=== PATIENT | male | born 1980 | race Caucasian/White ===

== ENCOUNTER 2023-06-04 04:38 | Emergency (ER) | payer BC, SELFPAY ==
--- NOTE | 2023-06-04 06:38 | EDS_ITS ---
HPI History of Present Illness Informant: patient and family Narrative Narrative: Healthy 43-year-old male presents almost 24 hours after waking up with numbness in the right side of his face. Initially started lower face, progressed up his face to his forehead and including weakness. Trouble drinking when his symptoms progressed, trouble closing his eyes, and increased tearing from his right eye. No headache or ear pain. No recent infections or URI symptoms. He denies any arm or leg neurologic involvement or trouble walking or trouble speaking. No recent head injury. Never had this before. PFSH PFSH Medical History no medical history no medical history Home Medications prednisone 20 mg tablet 60 mg (3 x 20 mg) PO DAILY 6 days #18 TABLETS 06/04/23 [Rx Last Taken Unknown] valacyclovir 1 gram tablet 1,000 mg PO TID #21 tabs 06/04/23 [Rx Last Taken Unknown] Social History Smoking Status: Former smoker ROS ROS ED Constitutional Constitutional ED: Denies chills or fever(s) Eyes Eyes: Reports as per HPI, ptosis and tearing; Denies blurry vision, change in vision or diplopia ENT ENT ED: Denies ear pain, rhinorrhea or sore throat Cardiovascular Cardiovascular: Denies chest pain or palpitations Respiratory/Chest Respiratory/Chest: Denies cough or dyspnea Gastrointestinal Gastrointestinal: Denies abdominal pain, diarrhea, nausea or vomiting Genitourinary Genitourinary ED: Denies dysuria or hematuria Musculoskeletal Musculoskeletal: Denies back pain or neck pain Integumentary Denies abscess or rash Neurologic Neurologic: Reports as per HPI and paresthesias; Denies abnormal gait, abnormal speech, headache(s) or weakness Psychiatric Psychiatric: Denies anxiety or suicidal thoughts EXAM Physical Exam Const Positive well nourished and well developed General Appearance ED: well developed and NAD HEENT Reports moist mucous membranes HEENT Narrative: Right ptosis. Paralysis of musculature of the right side of the face, including the forehead. Cuts off at the midline, normal muscle function on the left. normocephalic and atraumatic Eyes PERRL and EOMs intact bilaterally Eyes Narrative: Normal eye exam except for right ptosis. Neck full ROM and supple Resp normal respiratory effort and clear to auscultation bilaterally Cardio regular rate, regular rhythm and no murmurs GI non-tender and non-distended Auscultation: normoactive bowel sounds Palpation: soft Back/Spine no CVA tenderness General Back: other FROM Extremity normal to inspection General Extremety ED: Negative for edema, pulses abnormal or tenderness General Extremity: Negative for edema or pulses abnormal Neuro oriented x3 and no sensory deficits noted Neuro Narrative: Right cranial nerve VII palsy, along with some partial decrease sensation in the same distribution. Otherwise cranial nerve exam unremarkable. Normal speech. Normal gait. Sensorium / Orientation: awake and alert Motor Exam: strength 5/5 throughout Psych mental status grossly normal Skin no rashes or lesions noted and no wounds MDM MDM MDM Narrative Medical decision making narrative: Exam is consistent with a peripheral 7th nerve palsy on the right, with dense p aralysis of the entire right facial musculature including the forehead, and normal motor function of the musculature on the left side of the face, all consistent with Valentine's palsy. Blood pressure 153/96; will need to follow-up for recheck. Will start him on prednisone 60 mg daily for 7 days total, and valacyclovir along with it. Given appropriate discharge instructions and follow-up instructions. Rhythm Strip Rhythm Strip: Sinus Rhythm Rate: 70 Ectopy: None Discharge Plan Triage ED Provider: Cedrick Haas Dx/Rx/DC Orders Clinical Impression: Right-sided Valentine's palsy Prescriptions: New prednisone 20 mg tablet 60 mg PO DAILY 6 Days Qty: 18 0RF valacyclovir 1 gram tablet 1,000 mg PO TID Qty: 21 0RF Primary Care Provider: Kenneth Huber Activity Restrictions/Additional Instructions: (Patient given printed and written instructions & referral at discharge, seen during EMR downtime) Disposition Disposition: Home, Self Care Discharge Date/Time: 06/04/23 05:52
== END 2023-06-04 05:52 | disposition home or self-care (01) ==
PROVIDERS: Emergency Provider Emergency Medicine; PCP Family Medicine; Visit Provider Emergency Medicine
DX: G51.0 Bell's palsy (principal); Z87.891 Personal history of nicotine dependence
CPT/HCPCS: 99285